=== PATIENT | female | born 1940 | race Caucasian/White ===

== ENCOUNTER 2025-05-07 09:22 | Emergency (ER) | payer MEDICARE, SELFPAY ==
--- NOTE | ~2025-05-07 | XR_ITS ---
Examination: XR chest 2V Clinical History: cp Comparison: None Technique: PA and Lateral Findings: Cardiomediastinal silhouette normal size and configuration. Lungs clear. Except mild bibasilar atelectasis. No acute bony abnormality. Large hiatal hernia. IMPRESSION: 1. No acute cardiopulmonary findings. 2. Large hiatal hernia. Reviewed, dictated and finalized at location R.
--- NOTE | ~2025-05-07 | CT_ITS ---
CHEST ABDOMEN PELVIS WITH CONTRAST CLINICAL HISTORY: Retrosternal, epigastric pain radiating to back . COMPARISON: None TECHNIQUE: Helical CT performed from thoracic inlet to symphysis pubis IV contrast information not listed in PACS Coronal, sagittal reformats. Multi planar MIPS CT images acquired with automatic exposure control for dose reduction DLP: 392 mGy-cm FINDINGS: CHEST- Lungs/Pleura: Clear. Thoracic Aorta: No dissection. No aneurysm. Pulmonary arteries: Normal caliber. Heart: Unremarkable. Tracheobronchial tree: Patent. Nodes: No enlarged nodes. Bones: No acute bony abnormality. Chronic sternal fracture. Soft tissues: Large hiatal hernia. ABDOMEN/PELVIS- Liver: Mild intrahepatic biliary ductal dilatation. Probable debris central common bile duct Gallbladder: Contracted. Stones. Spleen: Unremarkable. Pancreas: Unremarkable. Adrenal glands: Small probable adenoma left side. Kidneys: Right kidney- No hydronephrosis. No renal stones. Left kidney- No hydronephrosis. No renal stones. Distal esophagus/stomach: Unremarkable. Small bowel loops: Normal caliber and wall thickness. 2 large duodenal diverticula Colon: Diverticula. Normal caliber and wall thickness. Appendix not seen. Nodes: No enlarged nodes. Peritoneum: No ascites. No free air. Urinary bladder: Unremarkable. Uterus: Removed. Adnexa: No masses. Bones: No acute bony abnormality. Soft tissues: Unremarkable. Aorta: No aneurysm or dissection. IVC: Unremarkable. Main portal vein/SMV/splenic vein: Patent. IMPRESSION: CHEST- 1. No acute abnormality. ABDOMEN/PELVIS- 1. Large hiatal hernia. 2. Worrisome for choledocholithiasis, with mild associated intrahepatic biliary ductal dilatation. Correlate with LFTs. Recommend MRCP if indicated. 3. Otherwise no acute abnormality. 4. Additional findings as above. Reviewed, dictated and finalized at location R. IMPRESSION: CHEST- 1. No acute abnormality. ABDOMEN/PELVIS- 1. Large hiatal hernia. 2. Worrisome for choledocholithiasis, with mild associated intrahepatic biliar y ductal dilatation. Correlate with LFTs. Recommend MRCP if indicated. 3. Otherwise no acute abnormality. 4. Additional findings as above.
--- NOTE | 2025-05-07 09:31 | ECG_ITS ---
Test Date: 2025-05-07 09:40:46 Measurements Intervals [place] Rate: 58 P: 60 SC: 170 QRS: 23 QRSD: 97 T: 40 QT: 408 QTc: 401 Interpretive Statements SINUS BRADYCARDIA No previous ECG available for comparison Electronically Signed On 05-07-2025 12:03:52 CDT by Srini Alonso M.D.
[2025-05-07 09:40] VITALS: BP 131/60; PULSE 58; RESP 20; TEMP 36.5; O2SAT 100
[2025-05-07 09:52] LABS: Hematocrit 39.1 % (37.0-47.0); Hemoglobin 12.6 g/dL (12.0-15.0); Immature Granulocyte Percent A 0.5 % (0-0.5); Lymphocytes Absolute Auto 1.80 K/mm3 (0.9-3.2); Mean Corpuscular HGB Conc 32.2 g/dl (32-36); Mean Corpuscular Hemoglobin 28.8 pg (26-34); Mean Corpuscular Volume 89.3 fl (80-100); Nucleated Red Blood Cells Absolute Auto 0.000 K/mm3 (0.0-0.012); Nucleated Red Blood Cells Perc 0.0 % (0.0-0.2); Platelet Count Result 233 k/mm3 (150-375); Red Blood Count 4.38 M/mm3 (4.2-5.4); White Blood Count 7.7 K/mm3 (4.5-10.0)
[2025-05-07 10:03] LABS: INR 1.0; Prothrombin Time 13.1 Seconds (11.1-14.7)
[2025-05-07 10:04] LABS: Partial Thromboplastin Time 24.2 Seconds (22.3-36.8)
[2025-05-07 10:07] LABS: Alanine Aminotransferase 60 U/L (6-35); Albumin Level 3.9 g/dL (3.5-5.1); Alkaline Phosphatase 111 U/L (38-126); Anion Gap 6 mmol/L (4-12); Aspartate Amino Transferase 220 U/L (14-36); Bilirubin,Total 0.7 mg/dL (0.2-1.3); Blood Urea Nitrogen 23 mg/dL (7-17); Calcium 8.5 mg/dL (8.4-10.2); Carbon Dioxide 30 mmol/L (22-30); Chloride 99 mmol/L (98-107); Estimated CRCL calculation 31 ml/min; Estimated Glomerular Filt Rate 53; Glucose 177 mg/dL (65-110); Lipase 141 U/L (23-300); Potassium 4.1 mmol/L (3.4-5.0); Sodium 135 mmol/L (137-145); Total Protein 6.6 g/dL (6.3-8.2)
--- NOTE | 2025-05-07 10:10 | ED.GENADULT ---
HPI - General Adult General Chief complaint: Nausea/Vomiting/Diarrhea Stated complaint: epigastric pain Time Seen by Provider: 05/07/25 10:08 Source: patient Mode of arrival: ambulatory Limitations: no limitations History of Present Illness HPI narrative: 84 years old white female, finished her breakfast then started feeling epigastric pain, retrosternal pain radiating between her shoulder blade, felt nauseated, went to the bathroom vomited 1 tbsp of bile, symptom lasted for roughly 1 hour then resolved. On arrival to the ED patient is asymptomatic. Patient is telling me that she had similar symptom at least 6 time in her life time and was told gas related. History of hypertension, hypothyroidism, denies smoking or use drugs, drinks occasionally, history of hysterectomy. Patient not taking anti-platelet or anticoagulant medication. Related Data Allergies Allergy/AdvReac Type Severity Reaction Status Date / Time No Known Allergies Allergy Verified 05/07/25 09:45 Exam Narrative: General appearance: Well-developed, well-nourished Skin: Normal color Head: Normocephalic, nontraumatic Eyes: Clear conjunctiva ENT: Oropharynx normal, ears normal, nose normal Neck: Supple, nontender Chest and respiratory: Airway patent, no respiratory distress, no accessory muscle use Heart: Regular rate/rhythm Abdomen: Soft, nontender, no organomegaly, quiet bowel sounds Vascular: Normal peripheral pulses, normal capillary refill. Musculoskeletal: Normal range of motion, nontender back Neurologic: Alert and oriented ?3, [employer] is normal as tested, no gross motor deficit Course Vital Signs Vital signs: Vital Signs Temperature 36.5 C 05/07/25 09:40 Pulse Rate 58 L 05/07/25 09:40 Respiratory Rate 20 05/07/25 09:40 Blood Pressure 131/60 05/07/25 09:40 Pulse Oximetry 100 05/07/25 09:40 Oxygen Delivery Room Air 05/07/25 09:40 Temperature 36.5 C 05/07/25 09:40 Pulse Rate 70 05/07/25 11:22 Respiratory Rate 16 05/07/25 11:22 Blood Pressure 132/49 L 05/07/25 11:22 Pulse Oximetry 99 05/07/25 11:22 Oxygen Delivery Room Air 05/07/25 09:40 Medical Decision Making [facility] Narrative Medical decision making narrative: PATIENT PRESENTS WITH SUDDEN ONSET OF EPIGASTRIC, RETROSTERNAL PAIN RADIATING TO THE BACK FEW MINUTES AFTER EATING BREAKFAST. RESOLVED AFTER 1 HOUR. VITAL SIGN INSIGNIFICANT ABNORMALITY PHYSICAL EXAMINATION INSIGNIFICANT FINDING DIFFERENTIAL DIAGNOSIS INCLUDE ESOPHAGEAL SPASM, GERD, GASTRITIS, CHOLECYSTITIS, HIATAL HERNIA, PANCREATITIS. BLOOD WORKUP TODAY INCLUDES CBC, CMP, LIPASE, TROPONIN SHOWED AST 220, ALT 60 OTHERWISE WITH[address] NORMAL LIMIT [address] CHEST ABDOMEN AND PELVIS WITH IV CONTRAST SHOWED LARGE HIATAL HERNIA, CHOLELITHIASIS, OTHERWISE INSIGNIFICANT ABNORMALITY DIAGNOSIS: HIATAL HERNIA, CHOLELITHIASIS PATIENT HAS BEEN ASYMPTOMATIC SINCE ARRIVAL TO THE EMERGENCY ROOM UNTIL THE TIME OF DISCHARGE. THE PT WAS DISCHARGED TO HOME.THE PT,S CONDITION UPON DISCHARGE WAS FAIR,EDUCATION WAS PROVIDED TO THE PT IN REFERENCE TO THE FINAL IMPRESSION,DISCHARGE STUDY RESULTS,TREATMENT,PROGNOSIS AND NEED FOR FOLLOW UP . Differential Diagnosis Differential Diagnosis: ABOVE Vital Signs Vital Signs: Vital Signs Temperature 36.5 C 05/07/25 09:40 Pulse Rate 58 L 05/07/25 09:40 Respiratory Rate 20 05/07/25 09:40 Blood Pressure 131/60 05/07/25 09:40 Pulse Oximetry 100 05/07/25 09:40 Oxygen Delivery Room Air 05/07/25 09:40 Temperature 36.5 C 05/07/25 09:40 Pulse Rate 70 05/07/25 11:22 Respiratory Rate 16 05/07/25 11:22 Blood Pressure 132/49 L 05/07/25 11:22 Pulse Oximetry 99 05/07/25 11:22 Oxygen Delivery Room Air 05/07/25 09:40 Lab Data 05/07/25 09:47 05/07/25 09:47 Labs: Lab Results 05/07/25 Range/Units 09:47 WBC 7.7 (4.5-10.0) K/mm3 RBC 4.38 (4.2-5.4) M/mm3 Hgb 12.6 (12.0-15.0) g/dL Hct 39.1 (37.0-47.0) % MCV 89.3 (80-100) fl MCH 28.8 (26-34) pg MCHC 32.2 (32-36) g/dl RDW 15.9 H (11.5-14.5) % Plt Count 233 (150-375) k/mm3 MPV 9.1 (7.4-10.4) fl Immature Gran % (Auto) 0.5 (0-0.5) % Neut % (Auto) 66.8 (45.5-73.1) % Lymph % (Auto) 23.4 (18.3-44.2) % Clinch % (Auto) 8.1 (2.6-8.5) % Eos % (Auto) 0.7 (0-4.4) % Baso % (Auto) 0.5 (0.2-1.2) % Lymph # (Auto) 1.80 (0.9-3.2) K/mm3 Clinch # (Auto) 0.6 (0.1-0.6) K/mm3 Eos # (Auto) 0.1 (0-0.3) K/mm3 Baso # (Auto) 0.0 (0.0-0.1) K/mm3 Abs Immat Gran (auto) 0.04 H (0.00-0.031) K/mm3 Absolute Neuts (auto) 5.1 (1.3-6.7) K/mm3 Absolute Nucleated RBC 0.000 (0.0-0.012) K/mm3 Nucleated RBC % 0.0 (0.0-0.2) % PT 13.1 (11.1-14.7) Seconds INR 1.0 APTT 24.2 (22.3-36.8) Seconds Sodium 135 L (137-145) mmol/L Potassium 4.1 (3.4-5.0) mmol/L Chloride 99 (98-107) mmol/L Carbon Dioxide 30 (22-30) mmol/L Anion Gap 6 (4-12) mmol/L BUN 23 H (7-17) mg/dL Creatinine 1.00 (0.7-1.0) mg/dL Estim Creat Clear Calc 31 ml/min Estimated GFR 53 L (59 - ) Glucose 177 H (65-110) mg/dL Calcium 8.5 (8.4-10.2) mg/dL Total Bilirubin 0.7 (0.2-1.3) mg/dL AST 220 H (14-36) U/L ALT 60 H (6-35) U/L Alkaline Phosphatase 111 (38-126) U/L Troponin I < 0.012 (0.000-0.034) ng/mL Total Protein 6.6 (6.3-8.2) g/dL Albumin 3.9 (3.5-5.1) g/dL Lipase 141 (23-300) U/L Imaging Data Radiologist's impression: Impressions Chest X-Ray 05/07/25 10:03 IMPRESSION: 1. No acute cardiopulmonary findings. 2. Large hiatal hernia. Chest/Abdomen/Pelvis CT 05/07/25 11:18 IMPRESSION: CHEST- 1. No acute abnormality. ABDOMEN/PELVIS- 1. Large hiatal hernia. 2. Worrisome for choledocholithiasis, with mild associated intrahepatic biliary ductal dilatation. Correlate with LFTs. Recommend MRCP if indicated. 3. Otherwise no acute abnormality. 4. Additional findings as above. ECG Data EKG #1: Interpretation: SINUS BRADYCARDIA AT 58 BEATS PER MINUTE, NO PREVIOUS EKG AVAILABLE FOR COMPARISON Critical Care Time Critical Care Time Critical Care Time: No Discharge Plan Discharge Clinical Impression: Hiatal hernia, Cholelithiasis Patient Disposition: Home Condition: Improved Instructions: Hiatal Hernia (ED), Gallstones (ED) Additional Instructions: RETURN IF SYMPTOMS ARE WORSENING , CALL YOUR FAMILY PHYSICIAN FOR APPOINTMENT, TAKE TYLENOL NEEDED FOR ACHES AND PAIN, CONTINUE HOME MEDICATIONS. Patient Language: Latvian Follow-up/Referrals: PHYSICIAN NOT ON STAFF,NONSTAFF [Primary Care Provider] Bradley Pennington MD [Physician, Gastroenterology] - 05/09/25
[2025-05-07 10:17] LABS: Troponin I < 0.012 ng/mL (0.000-0.034)
[2025-05-07 11:22] VITALS: BP 132/49; PULSE 70; RESP 16; O2SAT 99
[2025-05-07 12:56] LABS: Troponin I < 0.012 ng/mL (0.000-0.034)
[2025-05-07 13:16] VITALS: BP 139/42; PULSE 69; RESP 18; O2SAT 100
== END 2025-05-07 13:17 | disposition home or self-care (01) ==
PROVIDERS: Emergency Medicine; Emergency Provider Emergency Medicine
DX: K80.20 Calculus of gallbladder without cholecystitis without obstruction (principal); K44.9 Diaphragmatic hernia without obstruction or gangrene; R00.1 Bradycardia, unspecified
CPT/HCPCS: 36415; 71046; 71260; 74177; 80053; 83690; 84484; 85025; 85610; 85730; 93005; 99284; Q9967